=== PATIENT | male | born 1955 | race Hispanic/Latino ===

== ENCOUNTER → 2023-07-28 | Outpatient (REF) | payer MEDICARE ==
[~2023-07-28] MED LIST: AMLODIPINE BESYL5 MG PO; ARAVA20 MG PO; ATENOLOL25 MG PO; ATENOLOL50 MG PO; BUMETANIDE1 MG PO; CELEBREX200 MG PO; DIATRIZOATE MEGL/DIATRIZOA SOD 30 ML BTL PO ONE; IOPAMIDOL 370 MG/ML 100 ML INFUS..BTL INJ ONE; LEFLUNOMIDE10 MG; LISINOPRIL10 MG PO; METHOTREXATE2.5 MG PO; [UNRECOGNIZED DRUG - OTHER]; [UNRECOGNIZED DRUG - OTHER] PO
[2023-07-28 14:13] LABS: CREATININE, SERUM 1.42 mg/dL (0.72-1.25)
== END ==
LOC: CT 13:27
PROVIDERS: ATTEND Internal Medicine Gastroenterology
DX: B16.9 Acute hepatitis B without delta-agent and without hepatic coma (principal); R10.13 Epigastric pain; R63.4 Abnormal weight loss
CPT/HCPCS: 36415; 74177; 82565; 84520; Q9963; Q9967